=== PATIENT | male | born 1965 | race Caucasian/White ===

== ENCOUNTER 2025-04-29 15:26 | Emergency (ER) | payer BC ==
[~2025-04-29] VITALS: Ht 177.8 cm; Wt 69.1 kg
[2025-04-29 15:33] VITALS: BP 140/71; PULSE 81; RESP 16; TEMP 98.1; O2SAT 97
[2025-04-29 17:58] LABS: LEUKOCYTE ESTERASE ,URINE NEGATIVE (Neg); NITRITES, URINE NEGATIVE (Neg); OCCULT BLOOD,URINE NEGATIVE (Neg)
[2025-04-29 18:05] LABS: UA COLLECTION TYPE CLN CATCH MIDSTREAM
[2025-04-29 18:34] LABS: MEAN PLATELET VOLUME 7.7 FL (7.4-10.4); RED CELL DISTRIBUTION WIDTH 12.7 % (11.5-14.5)
[2025-04-29 19:07] LABS: CREATININE 0.87 MG/DL (0.60-1.10); TOTAL CARBON DIOXIDE 31.2 MMOL/L (24-32); eCRCL 87 ML/MIN; eGFR 89 ML/MIN
--- NOTE | 2025-04-29 20:59 | Physician Documentation ---
History of Present Illness ~ Chief Complaint: Urinary Symptoms Stated Complaint: PROSTATE PAIN Time Seen by MD: 17:46 Medication Reconciliation Allergies: Coded Allergies: No Known Allergies (Unverified , 04/29/25) Scheduled [Flomax], 0.4 MG DAILY Review of Systems ROS As stated above in the HPI, otherwise all systems are reviewed and negative. Physical Exam Vital Signs: Temperature: 98.1, Heart Rate: 81, Respiratory Rate: 16, BP: 140/71, Pulse Oximetry: 97, Weight: 69.090 Oxygen Flow Rate: 0 Physical Exam VITALS: Reviewed and as above. GENERAL: Alert, no apparent distress. HEENT: Normocephalic, atraumatic, PERRL, EOMI, dry mucosa, no erythema RESPIRATORY: Lungs clear, normal breath sounds, no respiratory distress. 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 Tamsulosin Capsule (Flomax Capsule) (04/30/25 21:00) Completed Orders - NAV MALIN Cbc/Diff (04/29/25 17:46) CMP (04/29/25 17:46) Vital Signs 04/29/25 15:33 Temp 98.1 Pulse 81 Resp 16 B/P (MAP) 140/71 Pulse Ox 97 O2 Flow Rate 0 Laboratory Tests Test 04/29/25 15:38 04/29/25 18:11 Urine Specimen Description Cln catch midstream Urine Color Yellow Urine Clarity Clear Urine pH 7.0 Urine Specific [place] 1.015 Urine Protein Negative Urine Glucose (UA) Negative Urine Ketones Negative Urine Occult Blood Negative Urine Nitrite Negative Urine Bilirubin Negative Urine Urobilinogen 0.2 Urine Leukocyte Esterase Negative Urine Culture Indicated Not ind Volume Urine Centrifuged 10 ml Urine Comment White Blood Count 5.4 Red Blood Count 5.17 Hemoglobin 16.0 Hematocrit 46.7 Mean Corpuscular Volume 90.4 Mean Corpuscular Hemoglobin 30.9 Mean Corpuscular Hemoglobin Concent 34.2 Red Cell Distribution Width 12.7 Platelet Count 217 Mean Platelet Volume 7.7 Neutrophils (%) (Auto) 59.7 Lymphocytes (%) (Auto) 27.4 Monocytes (%) (Auto) 11.1 Eosinophils (%) (Auto) 1.2 Basophils (%) (Auto) 0.6 Neutrophils # (Auto) 3.2 Lymphocytes # (Auto) 1.5 Monocytes # (Auto) 0.6 Eosinophils # (Auto) 0.1 Basophils # (Auto) 0.0 CBC Comment Sodium Level 143 Potassium Level 4.7 Chloride Level 107 Carbon Dioxide Level 31.2 Anion Gap 5 L Blood Urea Nitrogen 11 Creatinine 0.87 Estimated GFR/1.73 m2 89 BUN/Creatinine Ratio 12.6 Glucose Level 89 Calcium Level 8.9 Total Bilirubin 0.5 Aspartate Amino Transf (AST/SGOT) 22 Alanine Aminotransferase (ALT/SGPT) 36 Alkaline Phosphatase 82 Total Protein 7.6 Albumin 4.0 Globulin 3.6 Albumin/Globulin Ratio 1.1 Chemistry Comments Medical Decision Making Additional information obtaine: other Findings Chief Complaint: Urinary frequency and reduced urinary stream for 8 months. History of Present Illness: 60-year-old male presenting to the emergency department with an 8-month history of urinary frequency (approximately every 1.5 hours) and reduced urinary flow/stream. Reports occasional mild dysuria. Denies abdominal pain, perineal discomfort, sexual dysfunction beyond age-appropriate changes, fever, chills, nausea, vomiting, diarrhea, testicular/scrotal tenderness, pain, swelling, or concern for sexually transmitted infections. Medical Decision Making: Number and Complexity of Problems Addressed: Moderate complexity. Patient pre sents with lower urinary tract symptoms (LUTS) suggestive of benign prostatic hyperplasia (BPH), given age, gender, symptom pattern of urinary frequency, and reduced stream without concerning features for malignancy, infection, or acute urinary retention. Amount and Complexity of Data: Minimal data reviewed. Clinical presentation is consistent with obstructive voiding symptoms. No laboratory or imaging studies obtained in the emergency department as presentation does not suggest acute pathology requiring emergent intervention. Risk of Complications and Morbidity: Moderate risk if left untreated. While the patient is currently stable without evidence of acute urinary retention, complete obstruction, renal dysfunction, or infection, chronic untreated BPH can lead to bladder decompensation, hydronephrosis, recurrent urinary tract infections, or acute urinary retention. Initiation of alpha-yusuf therapy (tamsulosin) is appropriate to improve urinary flow and reduce symptoms while awaiting definitive urologic evaluation. Assessment and Plan: Lower urinary tract symptoms, likely secondary to benign prostatic hyperplasia Started tamsulosin 0.4 mg daily in the emergency department Patient educated on medication effects, including potential orthostatic hypotension and that symptom improvement may take several days to weeks Urgent urology referral provided; patient instructed to call urology clinic tomorrow morning for appointment scheduling Urology will perform comprehensive evaluation including digital rectal examination, urinalysis, post-void residual measurement, and consideration of PSA testing to rule out prostate cancer Return precautions discussed: return to ED for inability to urinate, severe abdominal/flank pain, fever, hematuria, or worsening symptoms Disposition: Discharged home in stable condition with close urology follow-up. This discharge MDM note documents the clinical reasoning for initiating alpha- yusuf therapy and arranging urgent urology follow-up for this patient with chronic lower urinary tract symptoms. The note reflects moderate complexity medical decision-making appropriate for this clinical scenario. Would you like me to summarize the evidence and recommendations regarding the initial diagnostic workup for lower urinary tract symptomsspecifically, the role of urinalysis, PSA testing, and post-void residual measurement prior to urology referral? This could help clarify best practices for outpatient management and ensure nothing is missed before specialist evaluation. Urinary Diff Dx:Considerations: Include: AAA, Aortic dissection, Appendicitis, Appendicitis train, Bowel obstruction, Bladder outlet obstruc., Cholelithiasis, Choleangitis, Cholecystitis, DJD, Epididymitis, Hepatitis, HNP, Impaction, Musculoskeletal pain, Pancreatitis, Postoperative Comp., Prostatitis, Pyelonephritis, Renal failure, Renal infarction, Strain, Urolithiasis, Urinary Obstruction, Urethritis, Urinary retention, UTI, Other Genital Diff Dx:Considerations: Include: Abscess, Balanitis, Balanoposthitis, Cellulitis, Epididymitis, Entrapment injury, Abbey's gangrene, Foreign body, Facture penis, Hydrocele, Inguinal hernia, Post-op Complication, Paraphimosis, Prostatitis, Priapism, Syphilis, Testicular torsion, Torsion-epididymis, Torsion-appendiceal, Urinary retention, Urethritis, Urethritis-chlamydial, Urethritis-gonococcal, UTI, Other Departure Disposition: 01 HOME / SELF CARE / HOMELESS Impression: Primary Impression: Retention of urine Additional Impression: Frequent urination Additional Instructions: Your Diagnosis You came to the emergency department with urinary symptoms that have been p resent for 8 months, including frequent urination (about every hour and a half), reduced urine flow and stream, and occasional mild burning with urination. These symptoms are likely caused by benign prostatic hyperplasia (BPH), which is a non-cancerous enlargement of the prostate gland that is common in men over 50 years old. Your Medication: Flomax (Tamsulosin) You have been started on a medication called Flomax (tamsulosin) 0.4 mg to help improve your urinary symptoms. How to take this medication: Take one capsule (0.4 mg) once daily Take it approximately 30 minutes after the same meal each day (for example, 30 minutes after breakfast every day) Swallow the capsule whole - do not crush, chew, or open it It may take 3 to 7 days before you notice improvement in your symptoms Important side effects to watch for: Dizziness or lightheadedness, especially when standing up quickly - this medication can lower your blood pressure To reduce dizziness: stand up slowly from sitting or lying positions, and avoid driving or operating machinery until you know how the medication affects you Changes in ejaculation (this is common but not dangerous) Rarely, prolonged painful erection - if this occurs, seek immediate medical attention Important medication interactions: Do not take this medication with other medications for enlarged prostate Tell all your doctors that you are taking Flomax, especially if you are planning cataract or eye surgery, as this medication can affect the eye during surgery Use caution if you take medications for erectile dysfunction, as combining them with Flomax can cause low blood pressure Lifestyle Changes to Help Your Symptoms The following changes can improve your urinary symptoms: Limit fluids before bedtime - avoid drinking anything for at least 2 hours before bed Reduce caffeine and alcohol - these can irritate the bladder Practice timed voiding - try to urinate on a schedule (for example, every 2-3 hours) rather than waiting until you feel urgent Perform Kegel exercises - these pelvic floor exercises can strengthen the muscles that control urination Follow-Up Care You must call the Urology clinic tomorrow morning to schedule an appointment. The urologist will: Perform a complete evaluation of your prostate and urinary symptoms May order additional tests such as urine tests or ultrasound Discuss whether you need additional medications or other treatments When to Return to the Emergency Department Come back to the emergency department or call 911 if you experience: Inability to urinate at all (urinary retention) Severe abdominal or back pain Fever (temperature over 100.4F or 38C) Blood in your urine Severe dizziness or fainting Worsening of your symptoms despite taking the medication Questions? If you have questions about your medication or symptoms before your urology appointment, you may call the emergency department or contact your primary care doctor. Patient would benefit from a urology visit. We are requesting that you see this patient in the urology clinic as soon as you are able. Follow up with [facility] at [phone]. Referrals: NO PRIMARY CARE PROVIDER (PCP) Prescriptions [Flomax] No Conflict Check 0.4 MG DAILY for 10 Days, #10 Prov: NAV MALIN 04/29/25 Education Educated: Patient Educated regarding: diagnosis, treatment, need for follow up Signature Scribe Signature: A Attestation: Scribed for Nav Malin by JOEY Mueller . 04/29/25 21:07 NAV MALIN Apr 29, 2025 20:59
[2025-04-29] MEDS ORDERED: Flomax (21:07)
== END 2025-04-29 21:32 | disposition home or self-care (01) ==
LOC: ER 15:27
DX: R33.9 Retention of urine, unspecified (principal); R35.0 Frequency of micturition
CPT/HCPCS: 36415; 80053; 81003; 85025; 99283